=== PATIENT | male | born 1980 | race Caucasian/White ===

== ENCOUNTER → 2017-07-21 | Outpatient (CLI) | payer OTHER | LOC: COL.RAD 15:33 | DX: N50.89 Other specified disorders of the male genital organs (principal); Z98.52 Vasectomy status ==

== ENCOUNTER 2019-02-19 10:23 | Day surgery (SDC) | payer OTHER ==
[~2019-02-19] VITALS: Ht 190.5 cm; Wt 85.2 kg
[2019-02-19] MEDS ORDERED: MULTI VITAMINS1 TAB PO (10:47)
[2019-02-19] MEDS ORDERED: NASONEX SPRAY17 GM NS (10:48)
[2019-02-19] MEDS ORDERED: ASPIRIN E.C. 8181 MG PO (10:48)
[2019-02-19 11:19] VITALS: BP 140/90; PULSE 68; TEMP 97.4
[2019-02-19] MEDS ORDERED: ROXICODONE 55 MG/TAB PO (14:29)
[2019-02-19 15:19] VITALS: BP 130/76; PULSE 53; TEMP 97.2
[2019-02-19 15:30] VITALS: BP 126/67; PULSE 59
[2019-02-19 15:45] VITALS: BP 126/79; PULSE 54; TEMP 97.3
[2019-02-19 16:00] VITALS: BP 127/64; PULSE 58
--- NOTE | 2019-02-19 16:34 | NUR ---
PT ARRIVED FROM PACU INTO BAY 6 PER CART. A/OX3, DENIES NAUSEA AND EATING ICE CHIPS, RATED PAIN AT A '4' ON 0-10 SCALE. BANDAID X3 DRY AND INTACT. VSS, AFEBRILE. WILL CONTINUE TO MONITOR.
--- NOTE | 2019-02-19 16:38 | NUR ---
PT REQUESTED APPLESAUCE AND APPLE JUICE, PT TOLERATED WELL, DENIES NAUSEA, CONT TO RATE PAIN AT 3-4 ON 0-10 SCALE. AT BEDSIDE AND TALKING WITH PT. WILL CONT TO MONITOR.
--- NOTE | 2019-02-19 16:45 | NUR ---
PT DENIES NAUSEA, RATES PAIN AT A '3' ON 0-10 SCALE, STATES,'ITS TOLERABLE'. IV DC/D IN LEFT HAND AND TOLERATED WELL. NO REDNESS, SWELLING OR PAIN NOTED OR COMPLAINTS. BANDAIDS X3 INTACT AND DRY. LUNGS CLEAR, HRR, BOWEL SOUNDS HYPOACTIVE AND PRESENT. DISCHARGE INSTRUCTIONS GIVEN TO PATIENT AND HIS , THEY VOICE UNDERSTANDING. RETURN APPT MADE FOR 2 WEEKS. PT AMBULATED OUT TO FAMILY WITH HOSPITAL STAFF AND AT HIS SIDE TO FAMILY VEHICLE.
[2019-02-19 16:57] VITALS: BP 123/66; PULSE 56
== END 2019-02-19 16:15 | disposition home or self-care (01) ==
LOC: SDCO 10:23
DX: K40.20 Bilateral inguinal hernia, without obstruction or gangrene, not specified as recurrent (principal); Z79.82 Long term (current) use of aspirin; Z98.52 Vasectomy status
CPT/HCPCS: C1781; J0690; J1100; J1885; J2250; J2405; J2704; J3010; J7120